=== PATIENT | male | born 1985 | race Caucasian/White ===

== ENCOUNTER 2020-10-21 18:21 | Emergency (ER) | payer OTHER ==
[~2020-10-21] VITALS: Ht 180.3 cm; Wt 63.5 kg
[2020-10-21] MEDS ORDERED: ZOFRAN ODT4 MG PO (21:27)
[2020-10-21 21:39] VITALS: BP 120/68
== END 2020-10-21 21:39 | disposition home or self-care (01) ==
LOC: ER 18:21
DX: F11.23 Opioid dependence with withdrawal (principal); R51.9 Headache, unspecified; R11.0 Nausea; F17.210 Nicotine dependence, cigarettes, uncomplicated